=== PATIENT | female | born 1980 | race Two or more races ===

== ENCOUNTER 2016-10-05 22:50 | Emergency (ER) | payer BC ==
--- NOTE | 2016-10-05 23:11 | PDOC ---
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 Patient had 3 days of gastroenteritis symptoms proximal 6 days ago that has since resolved and patient is tolerating by mouth's. Patient then developed upper respiratory tract symptoms and comes in complaining of cough and congestion. Patient denies any fevers at this time however said she has felt hot and cold but did not take her temperature. Patient said cough is somewhat productive with some yellowish-green phlegm at times. Patient denies any nasal discharge or pain in her face. Patient is also complaining of a mild sore throat. PAST MEDICAL HISTORY: no significant history PAST SURGICAL HISTORY: no significant history FAMILY HISTORY: no pertinant history SOCIAL HISTORY: Pt lives with family and is employed. MEDICATIONS: reviewed ALLERGIES: As per nursing notes Review of Systems General: No fevers or chills, no weakness, no weight loss HEENT: No change in vision. No sore throat,. No ear pain CardioVascular: No chest pain or shortness of breath Respiratory:No cough, or wheezing. Gastrointestinal: no nausea, vomitting, diarrhea or constipation, No rectal bleeding Genitourinary: No dysuria, hematuria, or frequency Musculoskeletal: No joint or muscle pain or swelling Neurologic: No headache, vertigo, dizziness or loss of consciousness Psychiatric: nor depression Skin: No rashes or easy bruising Endocrine: no increased thirst or abnormal weight change Allergic: no skin or latex allergy All other systems reviewed and normal Exam: General: Well-nourished well-developed individual, no acute distress HEENT: Throat: Normal, tonsils normal, mild erythema, tonsils are otherwise normal and there is no exudate Neck: Supple, no meningeal signs, there is small right-sided lymphadenopathy Eyes::Pupils equal reactive and round, extraocular motion intact Chest: Nontender to palpation Cardiac: S1-S2 normal, regular rate and rhythm, no murmurs rubs or gallops Respiratory: Lungs clear to auscultation bilateral Abdomen: Soft, nondistended, normal bowel sounds, nontender to palpation diffusely Extremities: Warm, dry, no cyanosis, clubbing, or edema Skin: No rashes Neuro: Alert and oriented x3, nonfocal exam, grossly intact, normal gait Psych: Normal mood and affect Assessment and plan: This is a 36-year-old female who had a episode of gastroenteritis approximately a week ago that has since resolved and now has a upper respiratory type tract infection. Symptoms are consistent with a viral etiology however there is a possible early bacterial component to her cough. Patient was given a prescription for Tessalon Perles as well as a Z-Duy. Patient was told she does not need to take the Z-Duy in that she develops fevers and worsening cough and congestion. Otherwise patient was given a note for no work tomorrow and will follow-up with her primary care doctor Past History - Past Medical History Allergies/Adverse Reactions: Allergies Allergy/AdvReac Type Severity Reaction Status Date / Time horseradish Allergy Tongue Unverified 01/04/16 13:17 swelling mushroom Allergy Hives Unverified 01/04/16 13:17 Home Medications: Ambulatory Orders Hydroxyzine HCl [Atarax -] 25 mg PO TID PRN #15 tablet 04/09/15 Prednisone 50 mg PO DAILY #20 tablet 04/09/15 Cranberry Extract [Cranberry] 200 mg PO DAILY capsule 01/04/16 Multivits Min/Iron/FA/Herb#186 [Hair, Skin & Nails Caplet] 1 each PO DAILY tablet 01/04/16 Azithromycin [Zithromax 250mg Tablets -] 250 mg PO UTDICT #6 tab 10/05/16 Benzonatate [Tessalon Pearls -] 100 mg PO TID #21 capsule 10/05/16 - Psycho/Social/Smoking Cessation Hx Anxiety: No Suicidal Ideation: No Smoking History: Never smoked Hx Alcohol Use: No Drug/Substance Use Hx: No Substance Use Type: None *DC/Admit/Observation/Transfer Diagnosis at time of Disposition: Viral upper respiratory illness - Discharge Dispostion Disposition: HOME Condition at time of disposition: Stable Admit: No - Prescriptions Prescriptions: Benzonatate [Tessalon Pearls -] 100 mg PO TID #21 capsule Azithromycin [Zithromax 250mg Tablets -] 250 mg PO UTDICT #6 tab - Patient Instructions Printed Discharge Instructions: DI for Viral Upper Respiratory Infection -- Adult Additional Instructions: Tylenol or Motrin as needed for fevers or pain. Take Tessalon Perles as directed on prescription for the cough. I'm giving you a prescription for Z-Duy if symptoms are improving U do not need to take it however if he starts developing a fever or worsening symptoms U can get the prescription filled and take it as directed. Return to the emergency department immediately with ANY new, persistent or worsening symptoms. Continue any medications as previously prescribed by your physician. You should follow up with your primary doctor as soon as possible regarding today's emergency department visit. . Please make sure your doctor reviews the results of your emergency evaluation. Thank you for coming to the Emergency Department today for your care. It was a pleasure to see you today. Please note that your evaluation is INCOMPLETE until you follow-up with your doctor. - Post Discharge Activity Work/School Note: Back to Work
[2016-10-05 23:19] VITALS: BP 119/77; PULSE 88; TEMP 98.6; BMI 23.0
== END 2016-10-05 23:28 | disposition home or self-care (01) ==
LOC: FER 22:50
DX: J06.9 Acute upper respiratory infection, unspecified (principal)
CPT/HCPCS: 99281-25

== ENCOUNTER → 2020-10-21 | Day surgery (SDC) | payer BC | END | disposition home or self-care (01) | LOC: FMAMMOTONE 13:58 | PROVIDERS: ATTEND Surgery Surgical Oncology | PROC: 0H9T3ZX Drainage of Right Breast, Percutaneous Approach, Diagnostic (ICD-10-PCS; principal; 2020-10-21) | DX: D24.1 Benign neoplasm of right breast (principal) | CPT/HCPCS: 19083; 87899; 88305-TC; A4648 ==

== ENCOUNTER → 2022-10-11 | Day surgery (SDC) | payer BC ==
[2022-10-11 11:29] LABS: BASO % 1.1 % (0-2.0); EOS % 1.6 % (0-4.5); HEMATOCRIT 36.1 % (32.4-45.2); HEMOGLOBIN 11.3 GM/dL (10.7-15.3); LYMPH % 30.5 % (8-40); MCH 23.6 pg (25.7-33.7); MCHC 31.4 g/dl (32.0-36.0); MEAN CELL VOLUME 75.2 fl (80-96); MEAN PLT VOLUME 7.2 fl (7.5-11.1); MONO % 6.6 % (3.8-10.2); NEUT % 60.2 % (42.8-82.8); PH,URINE 6.5 (5.0-8.0); PLATELET COUNT 568 10^3/uL (134-434); RDW 16.8 % (11.6-15.6); URINE APPEARANCE CLEAR; URINE BILIRUBIN NEGATIVE (NEGATIVE); URINE COLOR YELLOW; URINE GLUCOSE (UA) NEGATIVE (NEGATIVE); URINE KETONE NEGATIVE (NEGATIVE); URINE LEUK ESTERASE NEGATIVE (NEGATIVE); URINE NITRITE NEGATIVE (NEGATIVE); URINE PROTEIN NEGATIVE (NEGATIVE); URINE UROBILINOGEN 0.2 mg/dL (0.2-1.0); WHITE BLOOD COUNT 7.8 K/mm3 (4.0-10.0)
[2022-10-11 11:49] LABS: CHLORIDE 105 mmol/L (98-107); SODIUM 137 mmol/L (136-145)
[2022-10-11 12:31] LABS: ALBUMIN 3.7 g/dl (3.4-5.0); ANION GAP 7 MMOL/L (8-16); BLOOD UREA NITROGEN 17.3 mg/dL (7-18); CO2 25 mmol/L (21-32); GLUCOSE,RANDOM 82 mg/dL (74-106)
[2022-10-11 12:33] LABS: CHOLESTEROL 204 mg/dL (50-200)
[2022-10-11 12:34] LABS: CREATININE 0.8 mg/dL (0.55-1.3); SGOT/AST 14 U/L (15-37); SGPT/ALT 16 U/L (13-61); TRIGLYCERIDES 97 mg/dL (0-150)
[2022-10-11 12:35] LABS: LDL CHOLESTEROL (ONLY SJRH) 117 mg/dL (5-100)
[2022-10-11 12:36] LABS: BILIRUBIN,TOTAL 0.8 mg/dL (0.2-1); TOT PROT 7.4 g/dl (6.4-8.2)
[2022-10-11 12:39] LABS: HDL CHOLESTEROL 67 mg/dL (40-60)
[2022-10-11 12:40] LABS: ALK PHOS 76 U/L (45-117)
== END | disposition home or self-care (01) ==
LOC: JRADUS-SUR 08:02
PROVIDERS: ATTEND Internal Medicine Geriatric Medicine
PROC: 0H9T3ZX Drainage of Right Breast, Percutaneous Approach, Diagnostic (ICD-10-PCS; principal; 2022-10-11)
DX: D24.1 Benign neoplasm of right breast (principal)
CPT/HCPCS: 19083; 36415; 80053; 80061; 81003; 82306; 83036; 84439; 84443; 85025; 86140; 87899; 88305-TC; A4648

== ENCOUNTER 2024-07-25 09:04 | Emergency (ER) | payer BC ==
[2024-07-25 09:17] VITALS: BP 138/80; PULSE 89; RESP 18; TEMP 98.4; BMI 26.5
[2024-07-25] MEDS ORDERED: DEXAMETHASONE SOD PHOSPHATE 10 MG/1 ML VIAL ONE (09:28)
[2024-07-25] MEDS ORDERED: IBUPROFEN 400 MG TABLET (FP) PO ONE (09:28)
[2024-07-25] MEDS: IBUPROFEN 400 MG TABLET (FP) PO ONE ×2 (09:32→09:34)
[2024-07-25] MEDS: DEXAMETHASONE SOD PHOSPHATE 10 MG/1 ML VIAL IM ONE (09:32)
[2024-07-25] MEDS: DEXAMETHASONE 4 MG TABLET (FP) PO ONE (09:34)
[2024-07-25 11:14] LABS: THROAT:GRP A STREP NOT DETECTED (NOTDETECTED)
== END 2024-07-25 10:10 | disposition home or self-care (01) ==
LOC: FER 09:04
PROC: 3E023GC Introduction of Other Therapeutic Substance into Muscle, Percutaneous Approach (ICD-10-PCS; principal; 2024-07-25)
DX: R05.1 Acute cough (principal); J02.9 Acute pharyngitis, unspecified; R09.81 Nasal congestion; R11.0 Nausea; Z20.822 Contact with and (suspected) exposure to COVID-19
CPT/HCPCS: 0241U-QW; 87651; 99284-25; J1100